=== PATIENT | female | born 2000 | race Hispanic/Latino ===

== ENCOUNTER 2022-09-27 19:21 | Emergency (ER) | payer OTHER ==
[~2022-09-27] VITALS: Ht 160 cm; Wt 77.3 kg
[2022-09-28 01:36] VITALS: BP 120/74; TEMP 98; O2SAT 99
== END 2022-09-28 01:37 | disposition home or self-care (01) ==
LOC: M ED 19:21
DX: S13.4XXA Sprain of ligaments of cervical spine, initial encounter (principal); V49.40XA Driver injured in collision with unspecified motor vehicles in traffic accident, initial encounter; Y92.410 Unspecified street and highway as the place of occurrence of the external cause

== ENCOUNTER 2024-03-29 20:47 | Emergency (ER) | payer OTHER ==
[~2024-03-29] VITALS: Ht 162.6 cm; Wt 88.0 kg
[2024-03-29 20:52] VITALS: BP 118/66; TEMP 98.8; O2SAT 99
[2024-03-29 21:42] LABS: BASO % 0.4 % (0.0-1.0); EOS # 0.3 10^3/uL (0.0-0.5); EOS % 3.9 % (0.0-3.0); HEMATOCRIT 35.8 % (36.0-47.0); HEMOGLOBIN 11.3 g/dl (12.0-15.5); KETONE, URINE AUTO RFX NEGATIVE (NEGATIVE); LEUKOCYTE ESTERASE UR AUTO RFX NEGATIVE (NEGATIVE); LYMPH # 3.6 10^3/uL (1.5-5.0); LYMPH % 45.9 % (24.0-44.0); MEAN CORPUSCULAR HEMOGLOBIN 24.5 pg (27.0-33.0); MEAN CORPUSCULAR HGB CONC 31.6 g/dl (32.0-36.5); MEAN CORPUSCULAR VOLUME 77.7 fl (80.0-96.0); MONO # 0.6 10^3/uL (0.0-0.8); MONO % 7.4 % (2.0-8.0); NEUTROPHILS # 3.3 10^3/uL (1.5-8.5); NEUTROPHILS % 42.1 % (36.0-66.0); NITRITE, URINE AUTO RFX NEGATIVE (NEGATIVE); PLATELET COUNT, AUTOMATED 285 10^3/uL (150-450); RBC, URINE AUTO RFX 159 /HPF (0-3); RED BLOOD COUNT 4.61 10^6/uL (4.00-5.40); SQUAM EPITHELIAL CELL UR AURFX 2 /HPF (0-6); WBC, URINE AUTO RFX 1 /HPF (0-3); WHITE BLOOD COUNT 7.9 10^3/uL (4.0-10.0)
[2024-03-29 22:02] LABS: BLOOD UREA NITROGEN 13 MG/DL (9-23); CALCIUM LEVEL 8.5 MG/DL (8.5-10.1); CARBON DIOXIDE LEVEL 27 MMOL/L (20-31); CHLORIDE LEVEL 105 MMOL/L (98-107); CREATININE FOR GFR 0.69 MG/DL (0.55-1.30); GLOMERULAR FILTRATION RATE > 60.0 (>60); GLUCOSE, FASTING 87 MG/DL (60-100); POTASSIUM SERUM 4.2 MMOL/L (3.5-5.1); SODIUM LEVEL 140 MMOL/L (136-145)
[2024-03-30] MEDS ORDERED: PROV10TA PO (03:11)
[2024-03-30] MEDS: medroxyPROGESTERone 5MG TABLET PO ONE (04:07)
== END 2024-03-30 04:26 | disposition home or self-care (01) ==
LOC: M ED 20:47
DX: N93.9 Abnormal uterine and vaginal bleeding, unspecified (principal); R00.1 Bradycardia, unspecified